=== PATIENT | female | born 1960 | race Caucasian/White ===

== ENCOUNTER → 2017-04-09 | Outpatient (CLI) | payer BC ==
[~2017-04-09] MED LIST: ACET-1256 PO; ASPEC81 PO; CLR10 PO; METO25TA3 PO; MOME50SP5; MULT-513 PO; SINCALIDE INJ 1.5 MCG in SODIUM CHLORIDE 0.9% 100ML 100 ML IV ONE
--- NOTE | 2017-04-09 14:04 | DIAGNOSTIC IMAGING REPORT ---
NUCLEAR MEDICINE HEPATOBILIARY SCAN WITH EJECTION FRACTION HISTORY: Right upper quadrant abdominal pain. COMPARISON: None. TECHNIQUE: Immediately following the intravenous administration of 4.9 mCi Tc-99m Choletec, dynamic anterior abdominal imaging pre/post 1.5 mcg of Kinevac was performed. FINDINGS: Uniform hepatic tracer accumulation is shown. Prompt intrahepatic biliary excretion is seen. The gallbladder is visualized at 20 minutes. Common bile duct and small bowel were not identified until 80 minutes. This represents a delayed visualization of the common bile duct and small bowel. The gall bladder ejection fraction following administration of Kinevac was 10% (normal >35%). IMPRESSION: 1. No evidence for cystic duct obstruction. However, there is slightly delayed visualization of the common bile duct and small bowel. 2. Gallbladder ejection fraction calculated to be 10 %. 3. Given the above findings a follow-up ERCP or MRCP is recommended to exclude the possibility of partial obstructing stone or lesion within the common bile duct. Electronically signed by: Clinton Krishnan M.D. 04/09/2017 2:03 PM Dictated Date/Time: 04/09/2017 1:51 PM
== END | disposition home or self-care (01) ==
LOC: C.NUCL 10:25
PROVIDERS: ATTEND Physician Assistant
DX: R10.11 Right upper quadrant pain (principal); R94.8 Abnormal results of function studies of other organs and systems

== ENCOUNTER → 2017-04-18 | Outpatient (CLI) | payer BC ==
[~2017-04-18] MED LIST changes: -SINCALIDE INJ 1.5 MCG in SODIUM CHLORIDE 0.9% 100ML 100 ML IV ONE
--- NOTE | 2017-04-18 14:43 | MAMMOGRAPHY REPORT ---
BILATERAL DIGITAL SCREENING MAMMOGRAM TOMOSYNTHESIS WITH CAD: 04/18/2017 CLINICAL HISTORY: Routine screening. Patient has no complaints. TECHNIQUE: Breast tomosynthesis in addition to standard 2D mammography was performed. Current study was also evaluated with a Computer Aided Detection (CAD) system. COMPARISON: Comparison is made to exams dated: 04/17/2016 mammogram, 04/15/2015 mammogram, 05/27/2013 [facility] [employer] - [facility], and 04/30/2011 mammogram - [facility]. BREAST COMPOSITION: The tissue of both breasts is heterogeneously dense, which may obscure small mas ses. FINDINGS: No suspicious masses, calcifications, or areas of architectural distortion are noted in ei ther breast. There has been no significant interval change compared to prior exams. IMPRESSION: ACR BI-RADS CATEGORY 1: NEGATIVE There is no mammographic evidence of malignancy. A 1 year screening mammogram is recommended. The pa tient will receive written notification of the results. Approximately 10% of breast cancers are not detected with mammography. A negative mammographic report should not delay biopsy if a clinically suggestive mass is present. Fiona Gregg M.D. /:04/18/2017 12:40:36 Head Mechanic: Raven BUCHANAN)([place]), [facility] letter sent: Normal 1/2 BI-RADS Code: ACR BI-RADS Category 1: Negative
== END | disposition home or self-care (01) ==
LOC: C.MAMM 11:01
PROVIDERS: ATTEND Obstetrics & Gynecology
DX: Z12.31 Encounter for screening mammogram for malignant neoplasm of breast (principal)